=== PATIENT | male | born 2005 ===

== ENCOUNTER 2025-07-04 08:38 | Outpatient (REF) | payer SELFPAY ==
[2025-07-07 12:38] LABS: TB Interpretation Negative (Negative); TB1 Ag minus Nil 0.00 IU/mL; TB2 Ag minus Nil 0.00 IU/mL
== END 2025-07-04 08:39 | disposition home or self-care (01) ==
LOC: LBO 08:38
PROVIDERS: Visit Provider Nurse Practitioner Family
DX: Z02.1 Encounter for pre-employment examination (principal)
CPT/HCPCS: 36415; 86480